=== PATIENT | female | born 1960 | race Caucasian/White ===

== ENCOUNTER 2023-12-24 12:54 | Emergency (ER) | payer OTHER, SELFPAY ==
[2023-12-24 13:01] VITALS: BP 152/88
[2023-12-24 13:04] LABS: Glucose - Point of Care 107 mg/dl (70-99)
[2023-12-24 13:18] VITALS: BMI 30.2
[2023-12-24 14:09] VITALS: BP 130/65
[2023-12-24 14:18] LABS: % Basophils 0.5 % (0-2); % Eosinophils 3.6 % (0-6); % Immature Granulocytes 0.3 % (0-0.5); % Lymphocytes 31.1 % (20.5-51.1); % Monocytes 7.7 % (1.7-9.3); % Neutrophils 56.8 % (42.2-75.2); Absolute Eosinophils 0.2 10^3/uL (0-0.7); Absolute Monocytes 0.5 10^3/uL (0.1-0.6); Absolute Neutrophils 3.6 10^3/uL (1.4-6.5); Hematocrit 37.5 % (37.0-47.0); Hemoglobin 12.6 g/dL (12.0-16.0); Mean Corp Hgb Conc. 33.6 g/dL (33.0-37.0); Mean Corpuscular Hgb 29.6 pg (27.0-31.0); Mean Platelet Volume 8.5 fL (7.4-10.4); Nucleated Red Blood Cells % 0 %; Platelet Count 257 10^3/uL (130-400); Red Blood Cell Count 4.26 10^6/uL (4.20-5.40); Red Cell Dist. Width 12.6 % (11.5-14.5); White Blood Cell Count 6.4 10^3/uL (4.8-10.8)
[2023-12-24 14:20] LABS: Urine Albumin Negative (Neg - Trace); Urine Bilirubin Negative (Negative); Urine Character Very Cloudy (Clear); Urine Color Straw; Urine Glucose Negative (Negative); Urine Ketone Negative (Negative); Urine Leukocyte Trace (Negative); Urine Nitrite Negative (Negative); Urine Occult Blood Negative (Negative); Urine Urobilinogen Negative (Neg - 1+)
[2023-12-24 14:42] LABS: Urine Bacteria Few (Negative); Urine Red Blood Cell 0-2 /HPF (0-2); Urine White Cell 0-2 /HPF (0-5)
[2023-12-24 14:46] LABS: Blood Urea Nitrogen 16 mg/dl (7-17); Calcium 10.1 mg/dl (8.4-10.2); Carbon Dioxide 27 mmol/L (22-30); Chloride 102 mmol/L (98-107); Estimated Creatinine Clearance 83 ml/min; Glucose 105 mg/dl (70-99); Sodium 138 mmol/L (135-145); eGFR > 60.00
[2023-12-24 15:00] VITALS: BP 130/64
[2023-12-24 15:02] LABS: TSH Reflex To Free T4 1.05 uIU/ml (0.47-4.68)
--- NOTE | 2023-12-24 15:20 | ED.GENMED ---
History of Present Illness
General
Chief Complaint: Dizziness
Source: patient
Exam Limitations: none
Time Seen by Provider: 12/24/23 13:15
Nursing documentation reviewed up to this point in time: agreed with
History of Present Illness
History of Present Illness:
63-year-old female past medical history of anxiety depression presenting to the emergency department today with concerns of lightheadedness occurring off and on for the past few months. Also has felt worsening lightheadedness throughout the week
also some tingling to her face diffusely and also significant fatigue over the past week. Denies any specific chest pain nausea vomiting focal numbness or weakness recent illness fevers.
Review of Systems
Review of Systems
Allergies reviewed?: Yes
All Other Systems: ROS reviewed and negative except as documented in HPI and ROS
Phy Exam
Physical Exam
Physical Exam:
GENERAL: Alert , in no apparent distress
EYE: pupils equal and reactive
NECK: Supple, no significant adenopathy.
ENT: o/p clr, mmm.
CARDIAC: Regular rate and rhythm .
LUNGS: Clear breath sounds bilaterally, no acute respiratory distress, no wheezes/rales/rhonchi
ABDOMEN: Soft, without focal tenderness, no r/g, no cvat
NEUROLOGICAL: Alert and oriented, no focal neuro deficits
SKIN: Warm and dry, skin intact.
MUSCULOSKELETAL: No edema, well perfused.
PSYCH: Normal and appropriate interaction.
Course
Orders/Labs/Results
Orders:
Orders
12/24/23 13:05
Electrocardiogram (*1) Urgent
Reason for Study: Chest Pain
EKG- Treatment ONCE
12/24/23 13:56
Cardiac Monitoring- Treatment ONCE
12/24/23 14:10
Basic Metabolic Panel Urgent
Complete Blood Count/With Diff Urgent
TSH Reflex To Free T4 Urgent
Urinalysis Reflex To Culture Urgent
Date Specimen was Collected: 12/24/23
Time Specimen was Collected: 14:01
Urine Microscopic Reflex Cult Urgent
12/24/23 15:10
Add On- LAB Urgent
Tests Added?: ,lyme progressive
12/24/23 16:18
Amylase Urgent
Lipase Urgent
Lyme Progressive Urgent
Potassium Urgent
Abnormal Lab Results
12/24/23 12/24/23
13:03 14:10
Glucose 105 H mg/dl
(70-99)
Leukocyte Esterase Rfl Trace A
(Negative)
Urine Bacteria (Reflex) Few A
(Negative)
POC Glucose 107 H mg/dl
(70-99)
12/24/23 14:10
12/24/23 16:18
Vital Signs
Initial and Last Documented VS:
Initial Vital Signs
Temp Pulse Resp BP Pulse Ox
97.9 F 83 20 152/88 96
12/24/23 13:01 12/24/23 13:01 12/24/23 13:01 12/24/23 13:01 12/24/23 13:01
Last Documented Vital Signs
Temp Pulse Resp BP Pulse Ox
97.9 F 75 18 127/79 94
12/24/23 13:01 12/24/23 17:00 12/24/23 17:00 12/24/23 17:00 12/24/23 17:00
MDM/Problems Addressed
MDM/Problems Addressed:
63-year-old female presenting to the emergency department today with concerns of lightheadedness generalized fatigue worsening over the past few months. On arrival blood pressure mildly elevated otherwise vital signs are normal. Labs were obtained
without acute abnormalities. Urinalysis without signs of infection normal glucose level. EKG normal. No apparent life threats at this time reassuring assessment. Patient vies for close outpatient follow-up with primary care doctor. Return was
given. Patient claims have significant improvement throughout ER stay. Vital signs remaining normal throughout ER stay.
*Critical Care Note
Total Time (30-74mins, 75-104mins- exclusive of procedures): Not Applicable
ED Attending Note
-
Portions of this chart may have been created with voice recognition software.� Occasional wrong word or��sound alike� substitutions may have occurred due to the inherent limitations of voice recognition software.
Discharge Plan
Departure
Patient Disposition: Home (Routine Discharge)
Date of Disposition: 12/24/23
Time of Disposition: 17:15
Patient with high blood pressure during this ER visit?: No
Condition: Good
Covid-19: Not Applicable
Discharge Problem:
Lightheadedness
Instructions: Dizziness, Nonvertigo, (DC)
Prescriptions:
No Action
trazodone 50 mg Tablet
50 mg PO HS
lorazepam 0.5 mg Tablet
0.5 mg PO DAILYPRN PRN (Reason: anxiety)
amoxicillin-pot clavulanate [Augmentin] 875-125 mg Tablet
1 tab PO BID
escitalopram oxalate [Lexapro] 20 mg Tablet
20 mg PO HS
ibuprofen [Advil] 200 mg Tablet
200 mg PO Q6HPRN PRN (Reason: mildpain)
loratadine [Claritin] 10 mg Tablet
10 mg PO DAILY
Referrals:
Ajith Conner MD [Family Provider] -
Activity Restrictions/Additional Instructions:
You came to the emergency department today with concerns of ongoing lightheadedness fatigue. Here your reassuring assessment. Please follow closely with the primary care doctor in the next week. Return to the emergency department for any
worsening, new or concerning symptoms.
Interventions
Interventions:
*Risk Screen - Suicide Last Done: 12/24/23 13:01
*General Assessment Last Done: 12/24/23 13:01
*Neglect/Abuse Screening Last Done: 12/24/23 13:01
ED- Fall Risk Assessment Last Done: 12/24/23 13:18
ED- Neurological Assessment Last Done: 12/24/23 13:27
ED- Cardiac Assessment Last Done: 12/24/23 13:27
Discharge Date and Time
Print Language: [place]IZ[place]
[2023-12-24 16:00] VITALS: BP 132/64
[2023-12-24 16:40] LABS: Potassium 4.1 mmol/L (3.5-5.1)
[2023-12-24 16:43] LABS: Amylase 91 U/L (30-110); Lipase 204 U/L (23-300)
[2023-12-24 17:00] VITALS: BP 127/79
[2023-12-26 15:07] LABS: Lyme Antibody Screen, EIA Negative (Negative)
== END 2023-12-24 17:44 | disposition home or self-care (01) ==
LOC: EMR 12:54
PROVIDERS: Physician Assistant; EMERGENCY PHYSICIAN Student in an Organized Health Care Education/Training Program; FAMILY PHYSICIAN Family Medicine
DX: R42 Dizziness and giddiness (principal); F41.9 Anxiety disorder, unspecified; F32.A Depression, unspecified
CPT/HCPCS: 99284; 80048; 81003; 81015; 82150; 82962; 83690; 84132; 84443; 85025; 86618; 93005

== ENCOUNTER → 2024-01-25 14:57 | Outpatient (REF) | payer OTHER, SELFPAY | LOC: WDC 14:57 | PROVIDERS: ATTENDING PHYSICIAN Family Medicine | DX: Z12.31 Encounter for screening mammogram for malignant neoplasm of breast (principal) | CPT/HCPCS: 77063; 77067 ==

== ENCOUNTER → 2024-02-26 10:10 | Outpatient (REF) | payer OTHER, SELFPAY | LOC: PAVMRI 10:10 | PROVIDERS: ATTENDING PHYSICIAN Family Medicine | DX: R42 Dizziness and giddiness (principal); R53.83 Other fatigue; H53.8 Other visual disturbances | CPT/HCPCS: 70551 ==

== ENCOUNTER → 2024-03-12 09:20 | Outpatient (REF) | payer OTHER, SELFPAY | LOC: RCS 09:20 | PROVIDERS: ATTENDING PHYSICIAN Family Medicine | DX: R42 Dizziness and giddiness (principal); R53.83 Other fatigue; H53.8 Other visual disturbances | CPT/HCPCS: 93306 ==

== ENCOUNTER → 2024-12-03 09:01 | Outpatient (REF) | payer OTHER, SELFPAY | LOC: EMG 09:01 | PROVIDERS: ATTENDING PHYSICIAN Family Medicine | DX: R20.0 Anesthesia of skin (principal); F10.90 Alcohol use, unspecified, uncomplicated; F41.1 Generalized anxiety disorder | CPT/HCPCS: 95886; 95911 ==

== ENCOUNTER → 2024-12-25 10:42 | Outpatient (REF) | payer OTHER, SELFPAY | LOC: RCS 10:42 | PROVIDERS: ATTENDING PHYSICIAN Family Medicine | DX: R07.9 Chest pain, unspecified (principal) | CPT/HCPCS: 93017 ==

== ENCOUNTER → 2025-04-16 08:52 | Outpatient (REF) | payer OTHER, SELFPAY | LOC: WDC 08:52 | PROVIDERS: ATTENDING PHYSICIAN Physician Assistant | DX: Z12.31 Encounter for screening mammogram for malignant neoplasm of breast (principal) | CPT/HCPCS: 77063; 77067 ==